=== PATIENT | female | born 1950 | race Caucasian/White ===

== ENCOUNTER 2020-01-10 19:52 | Inpatient (IN) ==
[2020-01-10] MEDS ORDERED: ISOVUE-370 200 ML INFUS..BTL ONE ×2 (19:56→20:33)
[2020-01-10] MEDS ORDERED: *HR* Midazolam HCl 2 MG/2 ML VIAL ONE (19:56)
[2020-01-10] MEDS ORDERED: *HR* FentaNYL (PF) 100 MCG/2 ML VIAL ONE (19:56)
[2020-01-10] MEDS ORDERED: *HR* Heparin 10,000 UNIT/10 ML VIAL ONE (19:56)
[2020-01-10] MEDS ORDERED: Heparin 1,000 UNITS/500 mL 500 ML ONE (19:56)
[2020-01-10] MEDS ORDERED: 0.9 % Sodium Chloride 1,000 ML ONE (19:56)
[2020-01-10] MEDS ORDERED: Nitroglycerin 1,000 MCG/10 ML VIAL IV ONE (19:57)
[2020-01-10] MEDS ORDERED: Tirofiban 12.5 MG/250ML 12.5 MG/250 ML BAG ONE (20:04)
[2020-01-10] MEDS ORDERED: *HR* Ticagrelor 90 MG TABLET ONE (20:04)
[2020-01-10] MEDS ORDERED: *HR* Atropine Sulfate 1 MG/10 ML SYRINGE ONE (20:32)
[2020-01-10] MEDS ORDERED: Perflutren Lipid Microsphere 1.3 ML in 0.9 % Sodium Chloride 8.7 ML IVP PRN (20:58)
[2020-01-10 21:00] LABS: Adenovirus Not Detected (Not Detect); Coronavirus 229E Not Detected (Not Detect); Coronavirus HKU1 Not Detected (Not Detect); Coronavirus NL63 Not Detected (Not Detect); Coronavirus OC43 Not Detected (Not Detect); Human Metapneumovirus Not Detected (Not Detect); Human Rhinovirus/Enterovirus Not Detected (Not Detect); SARS-CoV-2 Not Detected (Not Detect)
[2020-01-10] MEDS ORDERED: Tirofiban 12.5 MG/250ML 12.5 MG/250 ML BAG IVC SCH ×2 (21:00)
[2020-01-10 21:01] LABS: Bordetella Pertussis Not Detected (Not Detect); Chlamydophila pneumoniae Not Detected (Not Detect); Influenza A Subtype 2009 H1 Not Detected (Not Detect); Influenza B Not Detected (Not Detect); Mycoplasma pneumoniae Not Detected (Not Detect); Parainfluenza Virus 1 Not Detected (Not Detect); Parainfluenza Virus 2 Not Detected (Not Detect); Parainfluenza Virus 3 Not Detected (Not Detect); Parainfluenza Virus 4 Not Detected (Not Detect); Respiratory Syncytial Virus Not Detected (Not Detect)
[2020-01-10] MEDS ORDERED: Famotidine 20 MG/2 ML VIAL IVP ONE (21:59)
[2020-01-10 22:34] LABS: Basophils % 0.2 %; Hematocrit 43.3 % (35.3-44.9); Hemoglobin 13.6 g/dL (11.5-15.4); Immature Granulocytes % 0.5 % (0-4); Lymphocytes # 1.4 K/mcL (0.6-4.6); Lymphocytes % 10.6 %; Mean Corpuscular HGB Conc 31.4 g/dL (31.6-35.5); Mean Corpuscular Hemoglobin 27.5 pg (28.0-33.3); Mean Corpuscular Volume 87.5 fL (83.0-100.0); Mean Platelet Volume 12.4 fL (9.4-12.4); Monocytes # 0.5 K/mcL (0.0-1.3); Monocytes % 3.4 %; Neutrophils # 11.1 K/mcL (1.6-8.9); Platelet Count 244 K/mcL (140-400); Red Blood Count 4.95 M/mcL (3.82-4.97); Red Cell Distribution Width 15.6 % (11.5-14.5); Segmented Neutrophils % 85.3 %; White Blood Count 13.1 K/mcL (4.3-11.1)
[2020-01-10 22:51] LABS: BUN/Creatinine Ratio 33 (6-26); Blood Urea Nitrogen 33 mg/dL (8-23); Calcium 8.6 mg/dL (8.6-10.3); Carbon Dioxide 22 mEq/L (23-29); Chloride 108 mEq/L (98-107); Glucose 125 mg/dL (70-105); Osmolality,Calculated 295 (280-300); Sodium 138 mEq/L (136-145); eGFR For African Americans > 60 (> 60); eGFR For Non-African Americans 54 (> 60)
[2020-01-10] MEDS ORDERED: GuaiFENesin Liq 200 MG/10 ML UDC PO PRN (23:16)
[2020-01-10] MEDS: Acetaminophen 325 MG TABLET PO PRN (23:41)
[2020-01-11 02:03] LABS: Basophils % 0.2 %; Hematocrit 42.5 % (35.3-44.9); Hemoglobin 13.1 g/dL (11.5-15.4); Immature Granulocytes % 0.6 % (0-4); Lymphocytes % 8.2 %; Mean Corpuscular HGB Conc 30.8 g/dL (31.6-35.5); Mean Corpuscular Hemoglobin 27.3 pg (28.0-33.3); Mean Corpuscular Volume 88.7 fL (83.0-100.0); Mean Platelet Volume 12.4 fL (9.4-12.4); Monocytes # 0.4 K/mcL (0.0-1.3); Monocytes % 3.6 %; Neutrophils # 10.8 K/mcL (1.6-8.9); Platelet Count 235 K/mcL (140-400); Red Blood Count 4.79 M/mcL (3.82-4.97); Red Cell Distribution Width 15.6 % (11.5-14.5); Segmented Neutrophils % 87.4 %; White Blood Count 12.4 K/mcL (4.3-11.1)
[2020-01-11 02:18] LABS: BUN/Creatinine Ratio 32 (6-26); Blood Urea Nitrogen 30 mg/dL (8-23); Calcium 8.4 mg/dL (8.6-10.3); Carbon Dioxide 22 mEq/L (23-29); Chloride 109 mEq/L (98-107); Glucose 127 mg/dL (70-105); Osmolality,Calculated 296 (280-300); Sodium 139 mEq/L (136-145); eGFR For African Americans > 60 (> 60); eGFR For Non-African Americans 59 (> 60)
[2020-01-11] MEDS: Sucralfate 1 GM TABLET PO SCH ×2 (08:25→16:23)
[2020-01-11] MEDS: *HR* Ticagrelor 90 MG TABLET PO SCH ×2 (10:35→19:45)
[2020-01-11] MEDS ORDERED: *HR* HYDROcodone/Acet 5/325 mg TABLET PO PRN (10:50)
[2020-01-11] MEDS: allopurinoL 100 MG TABLET PO SCH (14:03)
[2020-01-11] MEDS: Latanoprost 2.5 ML BOTTLE BOTH EYES SCH ×2 (14:03→19:45)
[2020-01-11] MEDS: Dorzolamide/Timolol OPTH 10 ML BOTTLE BOTH EYES SCH ×2 (14:03→19:45)
[2020-01-11] MEDS: Aspirin Enteric Coated 81 MG Tablet PO SCH (14:03)
[2020-01-12] MEDS: Sucralfate 1 GM TABLET PO SCH ×2 (06:55→16:01)
[2020-01-12] MEDS: Acetaminophen 325 MG TABLET PO PRN ×2 (06:58→20:12)
[2020-01-12] MEDS: *HR* Ticagrelor 90 MG TABLET PO SCH ×2 (08:00→20:07)
[2020-01-12] MEDS: allopurinoL 100 MG TABLET PO SCH (08:00)
[2020-01-12] MEDS: Aspirin Enteric Coated 81 MG Tablet PO SCH (08:00)
[2020-01-12] MEDS: Dorzolamide/Timolol OPTH 10 ML BOTTLE BOTH EYES SCH ×2 (08:00→20:08)
[2020-01-12] MEDS: Latanoprost 2.5 ML BOTTLE BOTH EYES SCH ×2 (08:01→20:08)
[2020-01-12] MEDS ORDERED: Cholecalciferol (D-3) 1,000 UNIT (25MCG) TABLET PO SCH (09:00)
[2020-01-12 09:43] LABS: Hematocrit 35.7 % (35.3-44.9); Mean Corpuscular HGB Conc 32.2 g/dL (31.6-35.5); Mean Corpuscular Hemoglobin 28.1 pg (28.0-33.3); Mean Corpuscular Volume 87.3 fL (83.0-100.0); Mean Platelet Volume 12.2 fL (9.4-12.4); Platelet Count 193 K/mcL (140-400); Red Blood Count 4.09 M/mcL (3.82-4.97); Red Cell Distribution Width 15.6 % (11.5-14.5)
[2020-01-12 09:46] LABS: Hemoglobin 11.5 g/dL (11.5-15.4)
[2020-01-12 10:11] LABS: BUN/Creatinine Ratio 23 (6-26); Blood Urea Nitrogen 20 mg/dL (8-23); Calcium 8.6 mg/dL (8.6-10.3); Carbon Dioxide 23 mEq/L (23-29); Chloride 110 mEq/L (98-107); Glucose 141 mg/dL (70-105); Magnesium 1.9 mg/dL (1.6-2.6); Osmolality,Calculated 299 (280-300); Potassium 3.5 mEq/L (3.5-5.1); Sodium 142 mEq/L (136-145); eGFR For African Americans > 60 (> 60); eGFR For Non-African Americans > 60 (> 60)
[2020-01-12 10:12] LABS: Thyroid Stimulating Hormone 1.873 mcIU/mL (0.340-5.600)
[2020-01-12] MEDS ORDERED: Perflutren Lipid Microsphere 1.3 ML in 0.9 % Sodium Chloride 8.7 ML IVP PRN (12:39)
[2020-01-12] MEDS ORDERED: *HR* HYDROcodone/Acet 5/325 mg TABLET PO PRN (12:39)
[2020-01-12] MEDS ORDERED: GuaiFENesin Liq 200 MG/10 ML UDC PO PRN (12:39)
[2020-01-13] MEDS: allopurinoL 100 MG TABLET PO SCH (07:59)
[2020-01-13] MEDS: Aspirin Enteric Coated 81 MG Tablet PO SCH (07:59)
[2020-01-13] MEDS: Cholecalciferol (D-3) 1,000 UNIT (25MCG) TABLET PO SCH (07:59)
[2020-01-13] MEDS: Sucralfate 1 GM TABLET PO SCH ×2 (07:59→15:57)
[2020-01-13] MEDS: Dorzolamide/Timolol OPTH 10 ML BOTTLE BOTH EYES SCH ×2 (08:00→20:43)
[2020-01-13] MEDS: Latanoprost 2.5 ML BOTTLE BOTH EYES SCH ×2 (08:00→20:44)
[2020-01-13] MEDS: *HR* Ticagrelor 90 MG TABLET PO SCH ×2 (08:00→20:42)
[2020-01-13] MEDS: Metoprolol XL (24 HR) Succ 50 MG TAB.ER.24H PO SCH (20:41)
[2020-01-13] MEDS: Acetaminophen 325 MG TABLET PO PRN (20:42)
[2020-01-14] MEDS: allopurinoL 100 MG TABLET PO SCH (07:55)
[2020-01-14] MEDS: *HR* Ticagrelor 90 MG TABLET PO SCH (07:55)
[2020-01-14] MEDS: Sucralfate 1 GM TABLET PO SCH (07:55)
[2020-01-14] MEDS: Aspirin Enteric Coated 81 MG Tablet PO SCH (07:55)
[2020-01-14] MEDS: Metoprolol XL (24 HR) Succ 50 MG TAB.ER.24H PO SCH (07:55)
[2020-01-14] MEDS: Cholecalciferol (D-3) 1,000 UNIT (25MCG) TABLET PO SCH (07:55)
[2020-01-14] MEDS: Dorzolamide/Timolol OPTH 10 ML BOTTLE BOTH EYES SCH (07:56)
[2020-01-14] MEDS: Latanoprost 2.5 ML BOTTLE BOTH EYES SCH (07:56)
[2020-01-14 11:11] VITALS: BP 111/63
[2020-01-14] MEDS ORDERED: Furosemide 20 MG/2 ML VIAL IVP ONE (12:22)
== END 2020-01-14 15:16 | disposition home health service (06) | DRG 247 ==
LOC: EMEROOARM 19:52 → ICNU 21:38 → 2NNU 01-12 21:44
PROVIDERS: ADMIT Internal Medicine Cardiovascular Disease; ATTEND Internal Medicine Cardiovascular Disease